=== PATIENT | female | born 1965 | race Caucasian/White ===

== ENCOUNTER 2019-08-04 08:33 | Emergency (ER) | payer MEDICAID ==
[~2019-08-04] VITALS: Ht 162.6 cm; Wt 90.9 kg
--- NOTE | 2019-08-04 08:46 | NUR ---
"MY BLOOD PRESSURE IS REALLY HIGH THEY SAID IT WAS 190/103. MY HANDS ARE GETTING CRAMPED. I'M LOW ON CALCIUM. AND THEN MY LEFT FOOT IS SWOLLEN". PT STATES SHE HAS NOT BEEN ABLE TO GET REFILL ON HTN MEDS. PT RESTING ON GURMARGARITA. NADN. MONITORS APPLIED. WARM BLANKET PROVIDED.
--- NOTE | 2019-08-04 09:18 | NUR ---
REPORT GIVEN TO STEPHEN ROMERO.
--- NOTE | 2019-08-04 09:26 | NUR ---
report receieved nilton lal md in room. plan labs/ekg. pt c/o jacquelin aragon, denies blurry vision/dizzy/nausea. call de la cruz in reach. as
[2019-08-04 10:04] LABS: ALANINE AMINOTRANSFERASE 48 U/L (12-78); ANION GAP 12 mmol/L (5-15); CALCIUM 7.3 mg/dL (8.5-10.1); CHLORIDE 106 mmol/L (98-107); CREATININE 0.94 mg/dL (0.55-1.02); MEAN CORPUSCULAR HEMOGLOBIN 33.6 pg (27.0-34.8); MEAN CORPUSCULAR HGB CONC 34.1 g/dL (32.4-35.8); MEAN CORPUSCULAR VOLUME 98.5 fL (80-100); MEAN PLATELET VOLUME 6.6 fL (7.4-10.4); PLATELET COUNT 456 x10^3/uL (130-400); RED BLOOD COUNT 3.94 x10^6/uL (3.82-5.3)
[2019-08-04 10:08] LABS: ALKALINE PHOSPHATASE 92 U/L (45-117); BILIRUBIN,TOTAL 0.4 mg/dL (0.2-1.0); TOTAL PROTEIN 6.6 g/dL (6.4-8.2); TROPONIN I 0.022 ng/mL (0.000-0.045)
--- NOTE | 2019-08-04 10:19 | NUR ---
pt sleeping. bp improved see charted vitals. labs unremarkable. recheck. no needs at this time. as
[2019-08-04] MEDS ORDERED: AMLO10TA8 PO (10:20)
[2019-08-04] MEDS ORDERED: LOSA100T14 PO (10:20)
[2019-08-04] MEDS ORDERED: METO25TA35 PO (10:21)
[2019-08-04] MEDS ORDERED: OMEP-110 PO (10:21)
[2019-08-04 10:36] LABS: BASOPHILS # (AUTO) 0.07 x10^3/uL (0-0.1); BASOPHILS % (AUTO) 1 % (0-1); EOSINOPHILS # (AUTO) 0.06 x10^3/uL (0-0.4); EOSINOPHILS % (AUTO) 1 % (1-7); LYMPHOCYTES # (AUTO) 0.96 x10^3/uL (1-3.4); LYMPHOCYTES % (AUTO) 9 % (22-44); MD SCAN; MONOCYTES # (AUTO) 0.44 x10^3/uL (0.2-0.8); MONOCYTES % (AUTO) 4 % (2-9); NEUTROPHILS # (AUTO) 8.82 x10^3/uL (1.8-6.8); NEUTROPHILS % (AUTO) 85 % (42-75)
--- NOTE | 2019-08-04 10:56 | NUR ---
pt c/o hand cramping. pt moving around a lot when bp cuff inflates, yelling in pain d/t bp cuff. discussed w/ MD. corrected ca 8.1. hold labetalol for now. call jena fernández. as
[2019-08-04] MEDS ORDERED: LABETALOL 5MG/ML, 20ML IVPush ONE (11:00)
[2019-08-04] MEDS ORDERED: LORazepam 1MG TABLET ONE (11:54)
[2019-08-04] MEDS ORDERED: LORazepam 1MG TABLET PO ONE (12:00)
[2019-08-04] MEDS ORDERED: LOSARTAN 50MG TABLET PO ONE (12:00)
[2019-08-04] MEDS ORDERED: AMLODIPINE 5 MG TABLET PO ONE (12:00)
[2019-08-04] MEDS ORDERED: AMLODIPINE 5 MG TABLET ONE (12:06)
[2019-08-04] MEDS ORDERED: METOPROLOL TARTRATE 25 MG TABLET ONE (12:07)
[2019-08-04] MEDS ORDERED: METOPROLOL TARTRATE 25 MG TABLET PO ONE (12:30)
[2019-08-04] MEDS ORDERED: LOSARTAN 25MG TABLET PO ONE (12:30)
--- NOTE | 2019-08-04 12:30 | NUR ---
meds per mar, losartan requested. pt calm and resting in room, when rn comes in pt starts shaking hands wildly c/o hand cramps and loudly calling out. as
--- NOTE | 2019-08-04 13:33 | NUR ---
losartan per sep. piv by tech. plan for cta to r/o dissection. pt aware and agrees. hypertensive, see charted vitals. denies cp/sob. as
--- NOTE | 2019-08-04 13:50 | NUR ---
Bedside report received from STEPHEN Sol. Plan of care discussed. Pt in CT
--- NOTE | 2019-08-04 13:53 | NUR ---
report to tristan jauregui. as
[2019-08-04] MEDS ORDERED: OMNIPAQUE 350 MG/ML, 100ML BOTTLE ONE (14:06)
--- NOTE | 2019-08-04 15:00 | NUR ---
PATIENT RESTING ON GURNEY, RESPIRATIONS EVEN AND UNLABORED, VSS, NAD, CALL LIGHT IN REACH, DENIES NEEDS AT THIS TIME.
--- NOTE | 2019-08-04 16:08 | NUR ---
PATIENT MEDICATED PER EMAR, TOLERATED WELL. WILL MONITOR FOR ANY ADVERSE REACTIONS, THEN TBDC.
[2019-08-04 16:51] VITALS: BP 180/102
--- NOTE | 2019-08-04 16:54 | NUR ---
DR OWENS AWARE OF PT'S BLOOD PRESSURE AT TIME OF DISCHARGE. WROTE FOR HOME BP MEDICATIONS. PT TO GET MEDICATIONS FILLED. DR OWENS OKAYED PATIENT FOR DISCHARGE.
== END 2019-08-04 16:56 | disposition home or self-care (01) ==
LOC: ED 09:00
DX: F41.1 Generalized anxiety disorder (principal); M79.672 Pain in left foot; I10 Essential (primary) hypertension; R51 Headache; Z87.891 Personal history of nicotine dependence
CPT/HCPCS: 36415; 71275; 80053; 84484; 85025; 93005; 99284; Q9967

== ENCOUNTER 2020-03-23 02:14 | Emergency (ER) | payer MEDICAID ==
[~2020-03-23] VITALS: Ht 162.6 cm; Wt 88.9 kg
[~2020-03-23 02:14] MED LIST: AMLO10TA8 PO; LOSA100T14 PO; METO25TA35 PO; OMEP-110 PO
[2020-03-23 02:21] VITALS: BP 199/116
--- NOTE | 2020-03-23 02:46 | NUR ---
pt bib remsa for htn. pt states " i was at [facility] for hihg blood pressure but they didnt give me all my meds when i left." pt sitting up in gurney, denies headache or dizziness. pt states "i got this rash at [facility]". pt nad, equal and bilateral chest rise and fall. WCTM.
[2020-03-23] MEDS ORDERED: FLUCONAZOLE 100 MG TABLET ONE (02:49)
--- NOTE | 2020-03-23 02:52 | NUR ---
pt medicated per sep. nad, no change in condition. wctm.
[2020-03-23] MEDS ORDERED: FLUCONAZOLE 100 MG TABLET PO ONE (03:00)
--- NOTE | 2020-03-23 03:06 | NUR ---
Patient given discharge instructions and they have confirmed that they understand the instructions. Patient ambulatory with steady gait. given taxi voucher per request. no belongings left in room after dc. nad.
== END 2020-03-23 03:08 | disposition home or self-care (01) ==
LOC: ED 02:56
DX: B37.9 Candidiasis, unspecified (principal); Z76.0 Encounter for issue of repeat prescription; I10 Essential (primary) hypertension; Z87.891 Personal history of nicotine dependence
CPT/HCPCS: 99283